=== PATIENT | female | born 1945 | race Caucasian/White ===

== ENCOUNTER 2024-06-15 01:02 | Emergency (ER) | payer MEDICARE, SELFPAY ==
[2024-06-15 01:05] VITALS: BP 167/80
[2024-06-15] MEDS: AMIDATE 20 MG IV (01:20)
--- NOTE | 2024-06-15 01:23 | ED.GENMED ---
History of Present Illness
General
Chief Complaint: Headache
Source: ambulance crew
Exam Limitations: clinical condition and altered mental status
Time Seen by Provider: 06/15/24 01:17
Nursing documentation reviewed up to this point in time: agreed with
History of Present Illness
History of Present Illness:
78-year-old female via [facility] apparently complained of the worst headache of her life vomited, apparently was speaking confused words when I evaluated her she was essentially comatose
No trauma, no blood thinners takes no meds
GCS --6
E1
V2
M3
Past History
Past History
ED Past Medical History: None
ED Past Surgical History: Cholecystectomy, Gynecological (hysterectomy) and Tonsilectomy
Review of Systems
Review of Systems
Unable to obtain full review of systems at this time due to: non-verbal
Other source history: ambulance crew
Phy Exam
Physical Exam
Physical Exam:
Physical Exam
General: Obtunded female vomiting 160/90 no overt signs of trauma
Neck: No tongue bite
Heart: bradycardic
Lungs: Shallow resp
Abdomen: Not tender
Neuro: GCS-6
Skin: no rash
Psychiatric: Unable to assess
Extremities: No signs of extremity trauma
Course
Orders/Labs/Results
Orders:
Orders
06/15/24 01:11
CT Head W/o Iv Contrast Stat
Comment:
Reason For Exam: comatose
06/15/24 01:12
Propofol 1,000,000 Mcg/100 ml [Diprivan] 1,000,000 mcg in 100 ml .ROUTE .STK-MED
06/15/24 01:15
Electrocardiogram (*1) Urgent
Reason for Study: Other
Other Reason for Exam: Respiratory Distress
Cardiac Monitoring- Treatment ONCE
EKG- Treatment ONCE
IV Insert/Care/Rem.- Treatment PRN
O2 Therapy [RESP] Urgent
Titrate/Wean O2 to maintain O2 sat greater than (%): 93
Special Instructions: TO MAINTAIN CONTINUOUS O2 SATS >/= 93%
Pulse Ox/cont/shift [RESP] Urgent
Quantity: 1
Special Instructions: continuous pulse ox
06/15/24 01:18
ECG [Electrocardiogram (*1)] Urgent
Reason for Study: Other
Other Reason for Exam: change in mental status, headache
Cardiology Consult: Unknown
EKG- Treatment ONCE
06/15/24 01:19
Complete Blood Count/With Diff Urgent
Comprehensive Metabolic Panel Urgent
NT-proBNP Urgent
PTT Urgent
Prothrombin Time Urgent
Triglycerides Routine
Comment: baseline levels with propofol infusion
Troponin I Urgent
06/15/24 01:21
ABG [Arterial Blood Gas] Urgent
%Oxygen/Room Air: 100 fi9x
06/15/24 01:22
Etomidate [Amidate 20 mg] 20 mg IV NOW STA
Succinylcholine Chloride [Anectine] 150 mg IV NOW STA
CR Chest Portable - 1 View Urgent
Comment:
Reason For Exam: veny
Reason Study Needs to be Portable: Unable to Transport
06/15/24 01:30
Propofol 1,000,000 Mcg/100 ml [Diprivan] 1,000,000 mcg in 100 ml IV PER PROTOCOL
Indication:: Deep Sedation
Begin Infusion:: Now
Goal:: RASS -3 to -5 or BIS < 60 or ventilator synchrony
Maximum dose in mcg/kg/min:: 50
Initial Dose in mcg/kg/min:: 20
Titration Instructions:: Titrate by 5-10 mcg/kg/min every 5 minutes until RASS -3 to -5 or
Titration Instructions:: BIS < 60 or ventilator synchrony is met.
Titration Instructions:: Administer analgesia bolus dose(s) & titrate analgesia prior to
Titration Instructions:: adjusting sedation.
Taper Instructions:: If RASS is at or below goal for 4 consecutive hours decrease infusion by
Taper Instructions:: 5-10 mcg/kg/min every 2 hours. Do not wean infusion to off if patient is
Taper Instructions:: receiving a continuous NMBA or has received bolus NMBA with the past 3 hrs
Over-sedation Instructions:: If BIS< 40 and synchronous with ventilator decrease infusion by
Over-sedation Instructions:: 5-10 mcg/kg/min every 2 hour until BIS = 40-60.
Notify provider:: immediately if patient exhibits signs/symptoms of propofol-related
Notify provider:: infusion syndrome.
Additional Instructions:: Patient MUST be mechanically ventilated and MUST receive analgesia
06/15/24 01:33
Propofol [Diprivan] 20 ml .ROUTE .STK-MED
06/16/24 08:00
Polyethylene Glycol Powder [Miralax] 17 grams TUBE DAILY
06/18/24 06:00
Triglycerides Q3D
Comment: every 72 hours while patient is on propofol
06/21/24 06:00
Triglycerides Q3D
Comment: every 72 hours while patient is on propofol
06/24/24 06:00
Triglycerides Q3D
Comment: every 72 hours while patient is on propofol
Abnormal Lab Results
06/15/24
01:19
RBC 4.19 L 10^6/uL
(4.20-5.40)
Abs Immat Gran (auto) 0.1 H 10^3/uL
(0-0.05)
Absolute Lymphs (auto) 3.9 H 10^3/uL
(1.2-3.4)
Absolute Monos (auto) 0.8 H 10^3/uL
(0.1-0.6)
Immature Gran % 0.9 H %
(0-0.5)
06/15/24 01:19
Vital Signs
Initial and Last Documented VS:
Initial Vital Signs
Pulse Resp BP Pulse Ox
52 18 167/80 97
06/15/24 01:05 06/15/24 01:05 06/15/24 01:05 06/15/24 01:05
Last Documented Vital Signs
Pulse Resp BP Pulse Ox
52 18 167/80 97
06/15/24 01:05 06/15/24 01:05 06/15/24 01:05 06/15/24 01:05
Procedures
Intubations
Procedure completed by: yvette
Method of Intubation: curved blade and orotracheal
Tube size (cm): 7.0
Placement confirmed by: auscutation and capnography
Breath sounds after intubation: equal
Intubation complications: no complications
MDM/Problems Addressed
Differential Diagnosis Includes:
Intracerebral hemorrhage subarachnoid hemorrhage mass seizure drug overdose
MDM/Problems Addressed:
Coma
*Radiology
Radiology exam reviewed: preliminary read by ED provider
*Pulse Oximetry
Patient hypoxic: no
*EKG
Interpreted by ED Provider?: Yes
Interpretation: abnormal
Comparison EKG: no comparison EKG present
Heart Rate: 78
Rate: normal
Rhythm: sinus
Ischemia: non-specific ST changes
*Log Clerk Interpretation
Rate: normal
Interpretation: normal
Heart Rate: 78
Rhythm: sinus
*Critical Care Note
Total Time (30-74mins, 75-104mins- exclusive of procedures): 42
Update Note
Update Note:
Update CT noted
Patient moving her left arm
Will try to track down family to confirm goals of care
Reviewed with son full code, agreeable to transfer to [facility]
ED Attending Note
-
Portions of this chart may have been created with voice recognition software.� Occasional wrong word or��sound alike� substitutions may have occurred due to the inherent limitations of voice recognition software.
Discharge Plan
Departure
Referrals:
UNKNOWN - PT DOES,NOT KNOW [Family Provider] -
Discharge Date and Time
Print Language: THAI
[2024-06-15] MEDS: ANECTINE 150 MG IV (01:25)
[2024-06-15] MEDS: DIPRIVAN 100 IV (01:25)
[2024-06-15 01:32] LABS: % Eosinophils 2.4 % (0-6); % Immature Granulocytes 0.9 % (0-0.5); % Lymphocytes 42.4 % (20.5-51.1); % Monocytes 8.6 % (1.7-9.3); % Neutrophils 44.7 % (42.2-75.2); Absolute Basophils 0.1 10^3/uL (0-0.2); Absolute Eosinophils 0.2 10^3/uL (0-0.7); Absolute Immature Granulocytes 0.1 10^3/uL (0-0.05); Absolute Lymphocytes 3.9 10^3/uL (1.2-3.4); Absolute Monocytes 0.8 10^3/uL (0.1-0.6); Absolute Neutrophils 4.1 10^3/uL (1.4-6.5); Hematocrit 37.1 % (37.0-47.0); Hemoglobin 12.6 g/dL (12.0-16.0); Mean Corpuscular Hgb 30.1 pg (27.0-31.0); Mean Corpuscular Volume 88.5 fL (81.0-99.0); Mean Platelet Volume 8.8 fL (7.4-10.4); Nucleated Red Blood Cells % 0 %; Platelet Count 254 10^3/uL (130-400); Red Blood Cell Count 4.19 10^6/uL (4.20-5.40); Red Cell Dist. Width 12.6 % (11.5-14.5); White Blood Cell Count 9.2 10^3/uL (4.8-10.8)
[2024-06-15 01:43] LABS: PT 13.5 Sec (11.4-14.6)
[2024-06-15 01:44] LABS: ALT (SGPT) 26 U/L (0-35); APTT 25.7 Sec (23.4-35.0); AST (SGOT) 37 U/L (14-36); Albumin 3.8 g/dl (3.5-5.0); Alkaline Phosphatase 94 U/L (38-126); Blood Urea Nitrogen 17 mg/dl (7-17); Calcium 9.1 mg/dl (8.4-10.2); Carbon Dioxide 25 mmol/L (22-30); Chloride 104 mmol/L (98-107); Glucose 161 mg/dl (70-99); Potassium 3.5 mmol/L (3.5-5.1); Sodium 141 mmol/L (135-145); Total Bilirubin 0.3 mg/dl (0.2-1.3); Total Protein 6.2 g/dl (6.3-8.2); Triglycerides 119 mg/dl (10-149); eGFR > 60.00
[2024-06-15] MEDS: DIPRIVAN 100 MG IV ×2 (01:49→01:50)
[2024-06-15 01:53] VITALS: BP 123/64
[2024-06-15] MEDS: ATIVAN 2 MG IV ×2 (01:55→02:00)
[2024-06-15 01:56] VITALS: BP 123/64
[2024-06-15 01:56] LABS: NT-proBNP 107 pg/ml; Troponin I < 0.012 ng/ml
[2024-06-15 02:00] VITALS: BP 131/68
[2024-06-15 02:15] VITALS: BP 151/81
[2024-06-15] MEDS: KEPPRA 1500 MG IV (02:24)
== END 2024-06-15 03:10 | disposition short-term general hospital (02) ==
LOC: EMR 01:02
PROVIDERS: EMERGENCY PHYSICIAN Emergency Medicine
DX: I61.9 Nontraumatic intracerebral hemorrhage, unspecified (principal); Z90.49 Acquired absence of other specified parts of digestive tract; Z90.710 Acquired absence of both cervix and uterus
CPT/HCPCS: 31500; 96374; 96375; 99291; 70450; 71045; 80053; 83880; 84478; 84484; 85025; 85610; 85730; 93005